=== PATIENT | male | born 1980 | race African-American/Black ===

== ENCOUNTER 2016-11-30 11:55 | Emergency (ER) | payer MEDICAID ==
[~2016-11-30] VITALS: Ht 185.4 cm; Wt 108.9 kg
--- NOTE | ~2016-11-30 | CT2 ---
[facility] A Service of [facility] RADIOLOGY TEXT RESULTS PATIENT: DONNA CAVANAUGH LOCATION: SED : 80 UNIT #: [id number] AGE: [address]: JONI CAVANAUGH SEX: M ORDER DR: [id number] [place] [id number] E MR#: [id number] Acc #: [id number] NAME: DONNA CAVANAUGH : 1980 SEX: M STUDY DATE/TIME: 11/30/2016 13:04 UNIT: SED ROOM: STUDY DESCRIPTION: CT Abd and Pelv W Cont Attending Physician: Manju Colon Ordering Physician: Manju Colon Primary Care Physician: Primary Care Physician No MEDICAL IMAGING REPORT This report is preliminary unless electronic signature is present. EXAM CT scan of the abdomen and pelvis with contrast 11/30/2016 HISTORY Nausea, vomiting and diarrhea with lower abdominal pain beginning 3 days ago. TECHNIQUE Spiral CT was performed through the abdomen and pelvis following intravenous contrast administration only as per clinician request. This CT exam was performed with one or more of the following radiation dose reduction techniques: automatic exposure control, adjustment of mA and/or kV according to patient size, and iterative reconstruction. FINDINGS Abdomen exam is limited by the lack of oral contrast. The liver, spleen, pancreas, gallbladder and biliary tree, adrenal glands and kidneys are normal. Pelvis findings: There is colonic diverticulosis. There is inflammatory stranding in the fat surrounding the sigmoid colon characteristic of sigmoid diverticulitis. There is no evidence of bowel obstruction or abscess. No adenopathy is seen and there is no free fluid in the abdomen or pelvis. The lung bases are normal. IMPRESSION Colonic diverticulosis. There is inflammatory stranding in the fat surrounding the sigmoid colon characteristic of sigmoid diverticulitis. There is no evidence of bowel obstruction or abscess. Dictated by... Billy Gonzalez M.D. [facility] A Service of [facility] RADIOLOGY TEXT RESULTS PATIENT: DONNA CAVANAUGH LOCATION: SED : 80 UNIT #: [id number] AGE: [address]: JONI CAVANAUGH SEX: M ORDER DR: THIS IS AN ELECTRONICALLY VERIFIED REPORT Billy Gonzalez M.D. at 12/01/2016 6:37 AM KRT/to TD: 11/30/2016 16:57 JOB #: [id number] MEDICAL IMAGING REPORT Page 1 of 1
[2016-11-30] MEDS ORDERED: NO MEDICATIONS (12:08)
[2016-11-30 12:28] LABS: BASOPHIL# 0.1 X10e3 (0-0.3); BASOPHIL% 0.5 % (0-2.5); EOSINOPHIL# 0.1 X10e3 (0-0.7); EOSINOPHIL% 0.7 % (0.0-7.0); HEMATOCRIT 49.8 % (38.0-50.0); HEMOGLOBIN 16.8 gm/dL (13.0-16.0); LYMPHOCYTE# 1.5 X10e3 (1.0-3.5); LYMPHOCYTE% 8.7 % (17.0-45.0); MEAN CELL VOLUME 94.2 FL (83-96); MEAN CORPUSCULAR HEMOGLOBIN 31.8 PG (28-34); MEAN CORPUSCULAR HGB CONC 33.8 g/dL (30-36); MONOCYTE# 1.1 X10e3 (0-1.0); MONOCYTE% 6.2 % (3.0-12.0); NEUTROPHIL# 14.9 X10e3 (1.5-7.1); NEUTROPHIL% 83.9 % (40-75); PLATELET COUNT 182 X10e3 (140-420); RED BLOOD COUNT 5.29 X10e (3.90-5.60); RED CELL DISTRIBUTION WIDTH 14.7 % (11.0-15.5); WHITE BLOOD COUNT 17.8 X10e3 (4.0-10.5)
[2016-11-30 12:30] LABS: DIFF IND NO
[2016-11-30 12:45] LABS: ALBUMIN SERUM 4.9 g/dL (3.5-5.0); BILIRUBIN, DIRECT 0.2 mg/dL (0.0-0.2); BILIRUBIN,TOTAL 1.2 mg/dL (0.2-2.0); BUN/CREATININE RATIO 17.27; CALCIUM SERUM 9.5 mg/dL (8.4-10.2); CREATININE SERUM 1.1 mg/dL (0.6-1.4); GLOM FILT RATE Estimated 99.6 mL/min (>60); POTASSIUM 3.8 mmol/L (3.5-5.1); PROTEIN TOTAL SERUM 8.7 g/dL (6.0-8.3)
== END 2016-11-30 15:06 | disposition home or self-care (01) ==
LOC: SED 11:55
PROVIDERS: Physician Assistant
DX: K57.32 Diverticulitis of large intestine without perforation or abscess without bleeding (principal); D72.829 Elevated white blood cell count, unspecified; Z88.0 Allergy status to penicillin
CPT/HCPCS: 36415; 74177; 80048; 80076; 82150; 83690; 85025; 96372; 96374; 96375; 99284; J0500; J1170; J2405; Q9967